=== PATIENT | male | born 1980 | race Caucasian/White ===

== ENCOUNTER 2018-12-14 14:37 | Emergency (ER) | payer SELFPAY ==
[~2018-12-14] VITALS: Ht 170.2 cm; Wt 89.8 kg
[2018-12-14] MEDS ORDERED: LIDOCAINE 1% INJ 20 ML 20 ML VIAL ONE (14:50)
[2018-12-14] MEDS ORDERED: LIDOCAINE 1% INJ 20 ML 20 ML VIAL INJ ONE (15:00)
[2018-12-14] MEDS ORDERED: TETANUS,DIPTH,PERTUSS P/F (BOOSTRIX) 0.5 ML VIAL IM ONE (15:00)
--- NOTE | 2018-12-14 15:10 | NUR ---
Removal of FB wood splinted into toe. Digital block per Dr Haque with 1% Lidocaine, #11 Blade incision with FB removed.
--- NOTE | 2018-12-14 15:15 | NUR ---
Irrigated thru the incisional area with sterile NS with Betasept thru a 20 ga IV intercath with 40 ml thru and thru and add'l cleansing of toes with NS/Betasept. Ortho shoe placed on pt.
--- NOTE | 2018-12-14 15:15 | NUR ---
Pt signed consent for tdap inj.
--- NOTE | 2018-12-14 15:19 | ED Lower Extremity ---
General Chief Complaint: Foreign Body Stated Complaint: RT TOE FOREIGN OBJECT Nursing Triage Note: splinter History of Present Illness Date Seen by Provider: Dec 14, 2018 Time Seen by Provider: 15:14 Initial Comments Patient presenting to the emergency department for evaluation of a foreign body to his right big toe region as he states that her moving furniture yesterday and he thinks Big Piece of wood sticking up from his wood floor and he stepped on it. There is apparent piece of wood sticking up from the top side. He thinks his tetanus may be out of date so it was updated here. Patient denies any wea kness numbness tingling. He is in no obvious distress with normal vital signs. Allergies and Home Medications Allergies Coded Allergies: No Known Drug Allergies (Unverified , 12/14/18) Patient Home Medication List Home Medication List Reviewed: Yes Review of Systems Constitutional: No fever Skin: other (foreign body) Past Hcmnvll-Xvzesl-Sfszmz Hx Patient Social History Alcohol Use: Denies Use Recreational Drug Use: No Smoking Status: Current Everyday Smoker Type Used: Electronic/Vapor 2nd Hand Smoke Exposure: Yes Recent Hopitalizations: No Physical Abuse: No Sexual Abuse: No Mistreated: No Fear: No Seasonal Allergies Seasonal Allergies: No Past Medical History Surgeries: No Respiratory: No Cardiac: No Neurological: No Genitourinary: No Gastrointestinal: No Musculoskeletal: No Endocrine: No HEENT: No Cancer: No Psychosocial: No Integumentary: No Blood Disorders: No Physical Exam Vital Signs Capillary Refill : Height, Weight, BMI Height: '" Weight: lbs. oz. kg; BMI Method: General Appearance: WD/WN, no apparent distress Skin: other (bottom of foot at MTP region with skin puncture. On top of foot can see piece of wood tenting skin.) Procedures/Interventions I&D : Blade Size: 11 I & D Procedure: betadine prep Progress Wound prepped and draped in normal sterile fashion and approximately 3 cc of 1% lidocaine without epinephrine used to anesthetize the puncture wound whole in addition to where the skin is tented. An 11 blade was used to make a small incision where the skin was tented. Forceps and tweezers were then used to open the skin and grab the foreign body. Foreign body was removed in 1 traction motion and appeared to be intact. Piece of wood was a fairly large approximately 2 cm in length. Opening was irrigated copiously. No complications noted. Progress/Results/Core Measures Results/Orders My Orders Orders - AMANDA YANES DO Dipht,Pertuss(Acell),Tet Adult (Boostrix (12/14/18 15:00) Lidocaine 1% Inj 20 Ml (Xylocaine 1% Inj (12/14/18 15:00) Lidocaine 1% Inj 20 Ml (Xylocaine 1% Inj (12/14/18 14:50) Medications Given in ED Current Medications Medications Dose Ordered Sig/Burak Route Start Time Stop Time Status Last Admin Dose Admin Lidocaine HCl 20 ml ONCE ONCE INJ 12/14/18 15:00 12/14/18 15:01 DC 12/14/18 15:00 20 ML Progress Progress Note : Progress Note Foreign body appears to be removed intact however I didn't outreach counselor them that there can always be possibility of retained foreign body into watch for signs of infection and if there is any concerns he will need to return for further evaluation. Patient aware and agreeable with plan and verbalized understanding of need for short term f/u and strict ED return precautions discussed including worsening pain, redness, swelling, drainage or other general concerns. Departure Impression Primary Impression: Foreign body in skin Disposition: 01 HOME, SELF-CARE Condition: Stable Departure-Patient Inst. Referrals: NO,LOCAL PHYSICIAN (PCP/Family) Primary Care Physician Patient Instructions: Foreign Body in Skin AMANDA YANES DO Dec 14, 2018 15:19
[2018-12-14 15:23] VITALS: BP 134/81
== END 2018-12-14 15:23 | disposition home or self-care (01) ==
LOC: ER FS 14:40
DX: S90.451A Superficial foreign body, right great toe, initial encounter (principal); F17.290 Nicotine dependence, other tobacco product, uncomplicated; W45.8XXA Other foreign body or object entering through skin, initial encounter
CPT/HCPCS: 64450; 90715

== ENCOUNTER 2020-11-20 11:54 | Emergency (ER) | payer BC ==
[~2020-11-20] VITALS: Ht 170.1 cm; Wt 104.5 kg
--- NOTE | 2020-11-20 13:06 | ED Upper Extremity ---
General Chief Complaint: Upper Extremity Stated Complaint: RT ARM INJ Nursing Triage Note: Patient presents to the ED with c/o of right elbow soreness, tingling, and numbness in extending down to hand and fingers from elbow. Patient reports that he was working on a car turning a socket wrench and expected there to be resistance; when he turned the wrench there was no resistance and he hyperextended his elbow. Since then he reports the soreness has not improved and he has been experiencing numbness and tingling in down his arm into his hand and fingers. Nursing Sepsis Screen: No Definite Risk Source: patient History of Present Illness Date Seen by Provider: November 20, 2020 Time Seen by Provider: 12:44 Initial Comments 39-year-old male was trying to tighten a lug nut with a wrench. He was expecting to meet resistance and to work with using the wrench. However when he went to tighten the nut, he had no resistance and ended up hyperextending his right arm and elbow. He has had pain since this incident. He feels that it is inflamed and was stretched. He has tingling into his fingers. 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 He states that especially with work he was having increasing pain by the end of the day. In the last day or 2 he was feeling like there was a rubber band around his wrist and forearm causing him to have tingling in his hand and fingers like he had fallen asleep on it. He has tried ibuprofen with some improvement in his symptoms but states it does not last long. Onset: last week Severity: moderate Pain/Injury Location: right elbow Method of Injury: other (Hyperextended right elbow when trying to use a wrench to tighten a nut) Modifying Factors: Worse With Movement Allergies and Home Medications Allergies Coded Allergies: No Known Drug Allergies (Unverified , 12/14/18) Home Medications Prednisone 20 Mg Tab, 40 MG PO DAILY Prescribed by: FARHANA STEWART on 11/20/20 5429 Patient Home Medication List Home Medication List Reviewed: Yes Review of Systems Constitutional: No chills, No fever EENTM: no symptoms reported Respiratory: no symptoms reported Cardiovascular: no symptoms reported Gastrointestinal: no symptoms reported Genitourinary: no symptoms reported Musculoskeletal: see HPI Skin: No change in color Psychiatric/Neurological: Tingling Past Kefbpmd-Jxoiof-Ffmtmx Hx Past Med/Social Hx: Reviewed Nursing Past Med/Soc Hx Patient Social History Alcohol Use: Denies Use Smoking Status: Current Everyday Smoker Type Used: Electronic/Vapor 2nd Hand Smoke Exposure: Yes Recent Infectious Disease Expo: No Recent Hopitalizations: No Seasonal Allergies Seasonal Allergies: No Past Medical History Surgeries: No Respiratory: No Cardiac: No Neurological: No Genitourinary: No Gastrointestinal: No Musculoskeletal: No Endocrine: No HEENT: No Cancer: No Psychosocial: No Integumentary: No Blood Disorders: No Physical Exam Vital Signs Vital Signs - First Documented 11/20/20 12:25 Temp 37.1 Pulse 84 Resp 16 B/P (MAP) 140/105 (117) Pulse Ox 98 O2 Delivery Room Air Capillary Refill : Less Than 3 Seconds Height, Weight, BMI Height: 5'7.00" Weight: 198lbs. 0oz. 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 Ice to help with pain and swelling Progress Note #2: Progress Note X-rays did not demonstrate any acute bony injury. There did not appear to be a joint effusion. Treat with steroid and see if that helps from an inflammation standpoint better than the ibuprofen. Ice for pain and swelling. Encouraged to follow-up with clinic especially if he was not seeing improvement Diagnostic Imaging Diagonstic Imaging: Xray Plain Films/CT/US/NM/MRI: elbow Comments [facility] [place], [place] NAME: MAHNAZ ULLOA [facility] REC#: [id number] PT STATUS: REG ER : 1980 PHYSICIAN: FARHANA STEWART MD ADMIT DATE: 11/20/20/ER FS Signed Date of Exam:11/20/20 ELBOW 3 VIEW RIGHT INDICATION: Right elbow pain after hyperextension one week ago. FINDINGS: 3 views of the right elbow demonstrates normal ossification. No fracture, dislocation or joint effusion is seen. IMPRESSION: Negative right elbow. Dictated by: Dictated on workstation # [id number] Dict: 11/20/20 1318 Trans: 11/20/20 1336 [id number] Interpreted by: MARIELY EDOUARD MD Electronically signed by: MARIELY EDOUARD MD 11/20/20 1336 Reviewed: Reviewed by Me Departure Impression Primary Impression: Hyperextension injury of right elbow Qualified Codes: S59.801A - Other specified injuries of right elbow, initial encounter Additional Impression: Inflammation of peripheral nerve of right upper extremity Disposition: HOME, SELF-CARE Condition: Stable Departure-Patient Inst. Decision time for Depature: 13:35 Referrals: ROBIN OLEA MD (PCP/Family) Primary Care Physician Patient Instructions: Elbow Sprain ED Add. Discharge Instructions: Use ice 15-20 minutes every few hours as needed for pain and inflammation Take the steroid to help with inflammation and pain in place of the Ibuprofen. You could take acetaminophen as well if you need something more for pain. If not improving with this treatment then check with Dr. Olea as you may need to see Orthopedics like Dr. Vasquez or his Nurse Practitioner Igor Baker. If you want to call them directly to get seen you would call [phone] All discharge instructions reviewed with patient and/or family. Voiced understanding. Scripts Prednisone (Prednisone) 20 Mg Tab 40 MG PO DAILY for pain/nerve inflammation for 7 Days, #14 TAB 0 Refills Prov: ENYART,FARHANA E MD 11/20/20 FARHANA STEWART MD November 20, 2020 13:06
--- NOTE | 2020-11-20 13:21 | Diagnostic Imaging Report ---
INDICATION: Right elbow pain after hyperextension one week ago. FINDINGS: 3 views of the right elbow demonstrates normal ossification. No fracture, dislocation or joint effusion is seen. IMPRESSION: Negative right elbow. Dictated by: Dictated on workstation # [id number]
[2020-11-20] MEDS ORDERED: PRD20T PO (13:39)
[2020-11-20 13:49] VITALS: BP 145/87
== END 2020-11-20 13:47 | disposition home or self-care (01) ==
LOC: EDUNIT# 11:54 → ER FS 11:56
DX: S59.801A Other specified injuries of right elbow, initial encounter (principal); M79.2 Neuralgia and neuritis, unspecified; F17.290 Nicotine dependence, other tobacco product, uncomplicated; X50.9XXA Other and unspecified overexertion or strenuous movements or postures, initial encounter
CPT/HCPCS: 73080

== ENCOUNTER 2021-04-08 15:44 | Emergency (ER) | payer SELFPAY ==
[~2021-04-08] VITALS: Ht 170.1 cm; Wt 104.5 kg
[~2021-04-08 15:44] MED LIST: PRD20T PO
--- NOTE | 2021-04-08 15:51 | ED Chest Pain ---
General Stated Complaint: CHEST PAIN History of Present Illness Date Seen by Provider: Apr 08, 2021 Time Seen by Provider: 15:47 Initial Comments 40-year-old male presents with a brief 20-30 seconds of chest pain. Patient was at work when it started. 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 Patient also reports he can had a dull headache for about 2 weeks along with some feeling of shortness of breath for about 2 weeks. No reports of fevers chills nausea or vomiting. Patient is vaccinated with his last vaccination back in . Patient reports that his blood pressure has been running high. He went to [employer] and checked it noticed it was high and has been checking it frequently and it seems to be running higher than normal. Patient has no history of high blood pressure. No other systemic complaints Allergies and Home Medications Allergies Coded Allergies: No Known Drug Allergies (Unverified , 12/14/18) Patient Home Medication List Home Medication List Reviewed: Yes Prednisone (Prednisone) 20 Mg Tab, 40 MG PO DAILY Prescribed by: FARHANA STEWART on 11/20/20 1339 Review of Systems Review of Systems Constitutional: No chills, No fever Respiratory: Denies Cough; Shortness of Air; Denies Wheezing Cardiovascular: Chest Pain; Denies Irregular Heart Rate, Denies Lightheadedness, Denies Palpitations Gastrointestinal: Denies Abdominal Pain, Denies Nausea, Denies Vomiting Musculoskeletal: no symptoms reported Psychiatric/Neurological: Headache Past Bhzanbu-Txqdsc-Iruxfd Hx Seasonal Allergies Seasonal Allergies: No Past Medical History Surgeries: No Respiratory: No Cardiac: No Neurological: No Genitourinary: No Gastrointestinal: No Musculoskeletal: No Endocrine: No HEENT: No Cancer: No Psychosocial: No Integumentary: No Blood Disorders: No Physical Exam Vital Signs Vital Signs - First Documented 04/08/21 15:47 Temp 35.9 Pulse 79 Resp 14 B/P (MAP) 167/100 (122) Pulse Ox 100 O2 Delivery Room Air Capillary Refill : Height, Weight, BMI Height: 5'7.00" Weight: 198lbs. 0oz. 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 Skin: Normal Color, Warm/Dry Progress/Results/Core Measures Results/Orders Lab Results Laboratory Tests Test 04/08/21 15:55 Range/Units White Blood Count 8.5 4.3-11.0 10^3/uL Red Blood Count 5.08 4.30-5.52 10^6/uL Hemoglobin 15.3 13.3-17.7 g/dL Hematocrit 43 40-54 % Mean Corpuscular Volume 85 80-99 fL Mean Corpuscular Hemoglobin 30 25-34 pg Mean Corpuscular Hemoglobin Concent 35 32-36 g/dL Red Cell Distribution Width 12.4 10.0-14.5 % Platelet Count 277 130-400 10^3/uL Mean Platelet Volume 9.1 9.0-12.2 fL Immature Granulocyte % (Auto) 0 % Neutrophils (%) (Auto) 60 42-75 % Lymphocytes (%) (Auto) 29 12-44 % Monocytes (%) (Auto) 8 0-12 % Eosinophils (%) (Auto) 1 0-10 % Basophils (%) (Auto) 1 0-10 % Neutrophils # (Auto) 5.1 1.8-7.8 X 10^3 Lymphocytes # (Auto) 2.5 1.0-4.0 X 10^3 Monocytes # (Auto) 0.7 0.0-1.0 X 10^3 Eosinophils # (Auto) 0.1 0.0-0.3 10^3/uL Basophils # (Auto) 0.0 0.0-0.1 10^3/uL Immature Granulocyte # (Auto) 0.0 0.0-0.1 10^3/uL Prothrombin Time 12.6 12.2-14.7 SEC INR Comment 0.9 0.8-1.4 Activated Partial Thromboplast Time 26 24-35 SEC Sodium Level 139 135-145 MMOL/L Potassium Level 4.0 3.6-5.0 MMOL/L Chloride Level 100 98-107 MMOL/L Carbon Dioxide Level 26 21-32 MMOL/L Anion Gap 13 5-14 MMOL/L Blood Urea Nitrogen 21 H 7-18 MG/DL Creatinine 1.17 0.60-1.30 MG/DL Estimat Glomerular Filtration Rate 70 BUN/Creatinine Ratio 18 Glucose Level 90 70-105 MG/DL Calcium Level 9.6 8.5-10.1 MG/DL Corrected Calcium 8.5-10.1 MG/DL Magnesium Level 2.0 1.6-2.4 MG/DL Total Bilirubin 0.4 0.1-1.0 MG/DL Aspartate Amino Transf (AST/SGOT) 25 5-34 U/L Alanine Aminotransferase (ALT/SGPT) 35 0-55 U/L Alkaline Phosphatase 67 40-136 U/L Troponin I < 0.30 <0.30 NG/ML C-Reactive Protein < 0.30 <0.50 MG/DL Total Protein 7.6 6.4-8.2 GM/DL Albumin 4.8 H 3.2-4.5 GM/DL Lipase 38 8-78 U/L My Orders Orders - CASTILLO,DIPTI L DO Cbc With Automated Diff (04/08/21 15:52) Magnesium (04/08/21 15:52) Chest 1 View Ap/Pa Only (04/08/21 15:52) Ekg Tracing (04/08/21 15:52) Comprehensive Metabolic Panel (04/08/21 15:52) Myoglobin Serum (04/08/21 15:52) Protime With Inr (04/08/21 15:52) Partial Thromboplastin Time (04/08/21 15:52) Monitor-Rhythm Ecg Trace Only (04/08/21 15:52) Aspirin Chewable Tablet (Baby Aspirin Ch (04/08/21 16:00) Ed Iv/Invasive Line Start (04/08/21 15:52) Lipase (04/08/21 15:52) Troponin I Fs (04/08/21 15:52) Probnp Fs (04/08/21 15:52) Crp Fs (04/08/21 15:52) Medications Given in ED Current Medications Medications Dose Ordered Sig/Burak Route Start Time Stop Time Status Last Admin Dose Admin Aspirin 324 mg ONCE ONCE PO 04/08/21 16:00 04/08/21 16:01 DC 04/08/21 16:00 324 MG Vital Signs/I&O 04/08/21 15:47 Temp 35.9 Pulse 79 Resp 14 B/P (MAP) 167/100 (122) Pulse Ox 100 O2 Delivery Room Air Progress Progress Note : Progress Note She went negative chest x-ray, EKG, labs. Patient's headache and feeling short of breath has been going on for least week and 2:30 weeks. I discussed the need for him to follow-up with his primary care provider for further outpatient evaluation as there is a large number of causes for headaches. Patient's last blood pressure was 149/88 so this would not have any indication for outpatient treatment from the ER. Patient's chest pain was brief and nonspecific very un likely cardiac. Patient stable and discharged Initial ECG Impression Date: Apr 08, 2021 Initial ECG Impression Time: 15:44 Initial ECG Rate: 76 Initial ECG Rhythm: Normal Sinus Initial ECG Intervals: Normal Initial ECG Impression: Normal Comment normal ekg Departure Impression Primary Impression: Chest pain Qualified Codes: R07.89 - Other chest pain Additional Impression: Headache, unspecified Qualified Codes: R51.9 - Headache, unspecified Disposition: 01 HOME, SELF-CARE Condition: Stable Departure-Patient Inst. Referrals: SELFROBIN MD (PCP/Family) Primary Care Physician Patient Instructions: Headache, Adult ED, How to Keep Track of Your Headaches, Home Headache Remedies, Chest Pain That Is Not Caused by the Heart (DC) Add. Discharge Instructions: Follow-up with your primary care provider for further evaluation and outpatient management DIPTI CASTILLO DO Apr 08, 2021 15:51
[2021-04-08] MEDS ORDERED: ASPIRIN 81 MG CHEW (CHILDREN'S ASA) PO ONE (16:00)
[2021-04-08 16:02] LABS: BASOPHILS % (AUTO) 1 % (0-10); EOSINOPHILS # (AUTO) 0.1 10^3/uL (0.0-0.3); EOSINOPHILS % (AUTO) 1 % (0-10); HEMATOCRIT 43 % (40-54); HEMOGLOBIN 15.3 g/dL (13.3-17.7); LYMPHOCYTES # (AUTO) 2.5 X 10^3 (1.0-4.0); LYMPHOCYTES % (AUTO) 29 % (12-44); MEAN CORPUSCULAR HEMOGLOBIN 30 pg (25-34); MEAN CORPUSCULAR HGB CONC 35 g/dL (32-36); MEAN CORPUSCULAR VOLUME 85 fL (80-99); MEAN PLATELET VOLUME 9.1 fL (9.0-12.2); MONOCYTES # (AUTO) 0.7 X 10^3 (0.0-1.0); MONOCYTES % (AUTO) 8 % (0-12); NEUTROPHILS # (AUTO) 5.1 X 10^3 (1.8-7.8); NEUTROPHILS % (AUTO) 60 % (42-75); PLATELET COUNT 277 10^3/uL (130-400); WHITE BLOOD COUNT 8.5 10^3/uL (4.3-11.0)
--- NOTE | 2021-04-08 16:06 | Diagnostic Imaging Report ---
EXAM: Chest 1 view AP/PA only. INDICATION: Chest pain. COMPARISON: None. FINDINGS: Normal heart size and pulmonary vascularity. No dense consolidation, pleural effusion or pneumothorax. No acute osseous findings. IMPRESSION: No acute cardiopulmonary finding. Dictated by: Dictated on workstation # [id number]
[2021-04-08 16:15] LABS: INR 0.9 (0.8-1.4); PROTHROMBIN TIME PATIENT 12.6 SEC (12.2-14.7)
[2021-04-08 16:28] LABS: ALANINE AMINOTRANSFERASE 35 U/L (0-55); ALBUMIN 4.8 GM/DL (3.2-4.5); ALKALINE PHOSPHATASE 67 U/L (40-136); BILIRUBIN,TOTAL 0.4 MG/DL (0.1-1.0); BUN/CREATININE RATIO 18; CALCIUM 9.6 MG/DL (8.5-10.1); CARBON DIOXIDE 26 MMOL/L (21-32); CHLORIDE 100 MMOL/L (98-107); CREATININE SERUM 1.17 MG/DL (0.60-1.30); GFR ESTIMATED 70; GLUCOSE 90 MG/DL (70-105); LIPASE 38 U/L (8-78); SODIUM 139 MMOL/L (135-145); TOTAL PROTEIN 7.6 GM/DL (6.4-8.2)
[2021-04-08 17:00] VITALS: BP 149/99
== END 2021-04-08 16:49 | disposition home or self-care (01) ==
LOC: EDUNIT# 15:44 → ER FS 15:46
DX: R07.9 Chest pain, unspecified (principal); R51.9 Headache, unspecified; Z79.52 Long term (current) use of systemic steroids
CPT/HCPCS: 36415; 71045; 80053; 83690; 83735; 83874; 83880; 84484; 85025; 85610; 85730; 86141; 93005; 93041

== ENCOUNTER 2021-09-22 12:13 | Emergency (ER) | payer OTHER ==
[~2021-09-22] VITALS: Ht 170 cm; Wt 100.0 kg
[2021-09-22] MEDS ORDERED: morphine INJ 10 MG/ML 1ML (SYR OR VIAL) IVP STA (12:29)
[2021-09-22] MEDS ORDERED: KETOROLAC 30 MG/ML VIAL IM ONE (12:30)
--- NOTE | 2021-09-22 12:34 | ED Upper Extremity ---
General Chief Complaint: Laceration Stated Complaint: WC RT FINGER LAC Source: patient Exam Limitations: no limitations History of Present Illness Date Seen by Provider: Sep 22, 2021 Time Seen by Provider: 12:16 Initial Comments 40yoM that is RHD with no significant PMH coming in after cutting his right middle finger and ring finger. 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 Tetanus updated 3 years ago. He came immediately to the ER. He is having moderate to severe constant throbbing pain in his fingers which nothing seems to make better or worse. Is otherwise denying any other acute complaints. Allergies and Home Medications Allergies Coded Allergies: No Known Drug Allergies (Unverified , 12/14/18) Patient Home Medication List Home Medication List Reviewed: Yes Cephalexin (Cephalexin) 500 Mg Tablet, 500 MG PO QID Prescribed by: HENRIK CERVANTES on 09/22/21 1359 Hydrocodone Bit/Acetaminophen (HYDROcodone/APAP 5 MG/325 MG TAB) 1 Tab Tab, 1 TAB PO Q6H PRN for PAIN-SEVERE (8-10) Prescribed by: HENRIK CERVANTES on 09/22/21 1359 Prednisone (Prednisone) 20 Mg Tab, 40 MG PO DAILY Prescribed by: FARHANA STEWART on 11/20/20 1339 Review of Systems Constitutional: No chills, No fever EENTM: No blurred vision Respiratory: No cough Cardiovascular: No chest pain Gastrointestinal: No abdominal pain Genitourinary: no symptoms reported Musculoskeletal: joint pain Skin: other (Finger lacerations) Psychiatric/Neurological: No Symptoms Reported All Other Systems Reviewed Negative Unless Noted: Yes Past Xgzudri-Fwkncw-Dfnddh Hx Patient Social History Tobacco Use?: No Immunizations Up To Date First/Initial COVID19 Vaccinat: January 2021 Second COVID19 Vaccination Yaya: January 2021 Seasonal Allergies Seasonal Allergies: No Past Medical History Surgeries: No Respiratory: No Cardiac: No Neurological: No Genitourinary: No Gastrointestinal: No Musculoskeletal: No Endocrine: No HEENT: No Cancer: No Psychosocial: No Integumentary: No Blood Disorders: No Physical Exam Vital Signs Vital Signs - First Documented 09/22/21 12:50 Temp 35.6 Pulse 56 Resp 16 B/P (MAP) 132/108 (116) Pulse Ox 96 O2 Delivery Room Air Capillary Refill : Height, Weight, BMI Height: 5'7.00" Weight: 198lbs. 0oz. [id number]; 36.00 BMI Method:Stated General Appearance: WD/WN, mild distress HEENT: PERRL/EOMI, normal ENT inspection, pharynx normal Neck: non-tender, full range of motion, supple, normal inspection Cardiovascular: regular rate, rhythm, no edema, no murmur Respiratory: chest non-tender, lungs clear, normal breath sounds, no respiratory distress, no accessory muscle use Gastrointestinal: normal bowel sounds, non tender, soft; No distended, No guarding, No rebound Back: normal inspection, no CVA tenderness, no vertebral tenderness Shoulder: normal inspection, non-tender, no evidence of injury Elbow/Forearm: normal inspection Wrist: Yes normal inspection Hand: Right, laceration (1-1/2 cm laceration to the right middle finger on the radial side going into the nail that is hemostatic, small amount of skin removed from the radial side of the right ring finger with no real laceration) Neurologic/Tendon: normal sensation, normal motor functions, normal tendon functions Neurologic/Psychiatric: no motor/sensory deficits, alert, normal mood/affect Skin: normal color, warm/dry Lymphatic: no adenopathy Procedures/Interventions Wound Location: Upper Extremities Other Wound Location right middle finger Wound Length (cm): 1.5 Wound's Depth, Shape: into muscle, bone Wound Explored: bone fragment removed Irrigated w/ Saline (ccs): 500 Anesthesia: 1% Lidocaine (digital block performed ) Volume Anesthetic (ccs): 4 Wound Debrided: minimal Suture: Chromic Suture Size: 6-0 Number of Sutures: 8 Sterile Dressing Applied?: Yes Progress tolerated procedure well, one suture did have to go through nailbed and fingernail to keep it together Progress/Results/Core Measures Results/Orders My Orders Orders - HENRIK CERVANTES MD Morphine Injection (Morphine Injection (09/22/21 12:29) Ketorolac Injection (Toradol Injection) (09/22/21 12:30) Hand 3 View Right (09/22/21 12:29) Cephalexin Capsule (Keflex Capsule) (09/22/21 14:01) Medications Given in ED Current Medications Medications Dose Ordered Sig/Burak Route Start Time Stop Time Status Last Admin Dose Admin Ketorolac Tromethamine 15 mg ONCE ONCE IM 4/2/22 12:30 09/22/21 12:31 DC 09/22/21 12:34 15 MG Vital Signs/I&O 09/22/21 12:50 Temp 35.6 Pulse 56 Resp 16 B/P (MAP) 132/108 (116) Pulse Ox 96 O2 Delivery Room Air Progress Progress Note : Progress Note Presented to the ER after he cut his finger with a saw at work. Tetanus up-to-date. Vital stable. Hemostatic on exam. X-ray obtained showing a fracture fragment through the distal tuft of the right middle finger. Digital block was performed, it was extensively cleaned, I did remove the bone fragment. It was closed with chromic gut and dressed afterwards. Given antibiotics given the extent of the wound. He was then discharged home in stable condition with strict return precautions Diagnostic Imaging Diagonstic Imaging: Xray (hand) Comments [facility]. [place], [place] NAME: MAHNAZ ULLOA [facility] REC#: [id number] PT STATUS: REG ER : 1980 PHYSICIAN: HENRIK CERVANTES MD ADMIT DATE: 09/22/21/ER FS Draft Date of Exam:09/22/21 HAND 3 VIEW RIGHT INDICATION: Right hand pain and swelling after laceration from saw. COMPARISON: None. DISCUSSION: Three views of the right hand were obtained. Soft tissue wound noted involving the distal tip of the 3rd right finger. There is a displaced fragment involving the distal tuft of the 3rd right finger which is displaced into the volar soft tissues. No metallic foreign body. No dislocation. IMPRESSION: Displaced fracture fragment arising from the distal tuft of the distal right 3rd finger. Dictated on workstation # [id number] Dict: 09/22/21 1248 Trans: 09/22/21 1259 [id number] Interpreted by: AMANDA LOVE MD Electronically signed by: Departure Impression Primary Impression: Finger laceration Qualified Codes: S61.312A - Laceration without foreign body of right middle finger with damage to nail, initial encounter Disposition: 01 HOME, SELF-CARE Condition: Stable Departure-Patient Inst. Decision time for Depature: 14:05 Referrals: SELFROBIN MD (PCP) Primary Care Physician Patient Instructions: Laceration Repair With Stitches ED Add. Discharge Instructions: The stitches are absorbable. Try not to get the finger wet for the next week, after that time it is okay to submerge in water. Keep it covered so that it does not get dirty. He will take antibiotics for 1 week. Take ibuprofen 600 mg every 6 hours as needed for pain. If you have pain on top of that you can take the hydrocodone. If you have any redness spitting up your arm, pus coming out, or any fever I want you to be checked by another doctor. Scripts Hydrocodone Bit/Acetaminophen (HYDROcodone/APAP 5 MG/325 MG TAB) 1 Tab Tab 1 TAB PO Q6H PRN for PAIN-SEVERE (8-10) for 3 Days, #12 TAB 0 Refills Prov: HENRIK CERVANTES MD 09/22/21 Cephalexin (Cephalexin) 500 Mg Tablet 500 MG PO QID for 7 Days, #28 TAB Prov: HENRIK CERVANTES MD 09/22/21 Work/School Note: Work Release Form Date Seen in the Emergency Department: Sep 22, 2021 Return to Work: Sep 24, 2021 Restrictions: No Restrictions Other Restrictions Listed Below: Keep wound completely covered for 1 week so it doesn't get wet HENRIK CERVANTES MD Sep 22, 2021 12:34
[2021-09-22 12:50] VITALS: BP 132/108
--- NOTE | 2021-09-22 13:00 | Diagnostic Imaging Report ---
INDICATION: Right hand pain and swelling after laceration from saw. COMPARISON: None. DISCUSSION: Three views of the right hand were obtained. Soft tissue wound noted involving the distal tip of the 3rd right finger. There is a displaced fragment involving the distal tuft of the 3rd right finger which is displaced into the volar soft tissues. No metallic foreign body. No dislocation. IMPRESSION: Displaced fracture fragment arising from the distal tuft of the distal right 3rd finger. Dictated by: Dictated on workstation # [id number]
[2021-09-22] MEDS ORDERED: CEPH500T PO ×2 (13:59→15:29)
[2021-09-22] MEDS ORDERED: ACHD5005 PO ×2 (13:59→15:29)
[2021-09-22] MEDS ORDERED: CEPHALEXIN 250 MG (KEFLEX) CAP PO STA (14:01)
== END 2021-09-22 14:30 | disposition home or self-care (01) ==
LOC: EDUNIT# 12:13 → ER FS 12:15
DX: S61.212A Laceration without foreign body of right middle finger without damage to nail, initial encounter (principal); W26.8XXA Contact with other sharp object(s), not elsewhere classified, initial encounter
CPT/HCPCS: 73130; 99282

== ENCOUNTER 2023-04-07 14:36 | Emergency (ER) | payer SELFPAY ==
[~2023-04-07] VITALS: Ht 170.2 cm; Wt 101.3 kg
[~2023-04-07 14:36] MED LIST changes: +ACHD5005 PO; +CEPH500T PO
[2023-04-07 14:50] VITALS: BP 126/89
[2023-04-07] MEDS ORDERED: cefTRIAXone 1,000 MG VIAL IV/IM IM STA (15:01)
[2023-04-07] MEDS ORDERED: SULF1TAB38 PO (15:04)
--- NOTE | 2023-04-07 15:06 | ED Integumentary General ---
General Chief Complaint: Bite-Animal/Human/Insect Stated Complaint: INSECT BITE RT LEG Source: patient History of Present Illness Date Seen by Provider: Apr 07, 2023 Time Seen by Provider: 14:41 Initial Comments 42-year-old male presenting with complaints of redness and stinging to the back of his right calf. He thought that something may be bit him on Friday night. Today when he was at work he was having burning pain in his was hurting as it rubbed against his jeans. After he got off work he noticed that the area was red and felt warm to the touch. He cleaned it with alcohol and felt that he was getting some drainage from it. He denied having any fever or chills. He was concerned that there might be a spider bite that it caused this. He denies known history of MRSA. There is no redness streaking up his leg. He does have an area of redness with tenderness to palpation but there is no fluctuance or induration. Timing/Duration: getting worse Severity: moderate Location: extremities (Right posterior calf) Possible Cause: insect bite (Small bite from Friday) Modifying Factors: worse with scratching Associated Symptoms: change in skin texture, edema; No fever, No hives, No jaundice, No malaise, No nasal congestion, No numbness, No pallor, No paresthesia, No petechiae, No sore throat, No tingling Allergies and Home Medications Allergies Coded Allergies: No Known Drug Allergies (Unverified , 12/14/18) Patient Home Medication List Home Medication List Reviewed: Yes Cephalexin (Cephalexin) 500 Mg Tablet, 500 MG PO QID Prescribed by: HENRIK CERVANTES on 09/22/21 1529 Hydrocodone Bit/Acetaminophen (HYDROcodone/APAP 5 MG/325 MG TAB) 1 Tab Tab, 1 TAB PO Q6H PRN for PAIN-SEVERE (8-10) Prescribed by: HENRIK CERVANTES on 09/22/21 1530 Prednisone (Prednisone) 20 Mg Tab, 40 MG PO DAILY Prescribed by: FARHANA STEWART on 11/20/20 1339 Sulfamethoxazole/Trimethoprim (Bactrim Ds Tablet) 1 Each Tablet, 1 EACH PO BID Prescribed by: FARHANA STEWART on 04/07/23 1504 Review of Systems Review of Systems Constitutional: No chills, No dizziness, No fever EENTM: no symptoms reported Respiratory: no symptoms reported Cardiovascular: no symptoms reported Gastrointestinal: no symptoms reported Genitourinary: no symptoms reported Musculoskeletal: see HPI Skin: see HPI Psychiatric/Neurological: No Symptoms Reported Past Dwdjivi-Bbfkan-Zvosin Hx Immunizations Up To Date First/Initial COVID19 Vaccinat: January 2021 Second COVID19 Vaccination Yaya: January 2021 Seasonal Allergies Seasonal Allergies: No Past Medical History Surgeries: No Respiratory: No Cardiac: No Neurological: No Genitourinary: No Gastrointestinal: No Musculoskeletal: No Endocrine: No HEENT: No Cancer: No Psychosocial: No Integumentary: No Blood Disorders: No Physical Exam Vital Signs Vital Signs - First Documented 04/07/23 14:50 Temp 36.8 Pulse 83 Resp 16 B/P (MAP) 126/89 (101) O2 Delivery Room Air Capillary Refill : General Appearance: WD/WN, no apparent distress Cardiovascular: normal peripheral pulses Extremities: normal range of motion, normal capillary refill, inflammation (Area of erythema and tenderness to palpation on the posterior superior calf on the right side. There is no induration or fluctuance or drainage noted.) Skin: warm/dry Skin Problem Location: lower extremities (Right posterior superior calf) Skin Problem Character: erythema, swelling, tenderness, warm Procedures/Interventions Suture Size: 6-0 Progress/Results/Core Measures Results/Orders My Orders Orders - FARHANA STEWART MD Ceftriaxone Iv/Im (Ceftriaxone Iv/Im) (04/07/23 15:01) Lidocaine 1% Inj 20 Ml (Xylocaine 1% Inj (04/07/23 15:15) Lidocaine 1% Inj 10 Ml (Xylocaine 1% Inj (04/07/23 15:07) Medications Given in ED Current Medications Medications Dose Ordered Sig/Burak Route Start Time Stop Time Status Last Admin Dose Admin Lidocaine HCl 10 ml STK-MED ONCE .ROUTE 04/07/23 15:07 04/07/23 15:11 DC 04/07/23 15:13 2.1 ML Vital Signs/I&O 04/07/23 14:50 Temp 36.8 Pulse 83 Resp 16 B/P (MAP) 126/89 (101) O2 Delivery Room Air Progress Progress Note : Progress Note With patient not having any induration, fluctuance, drainage there is nothing to culture. Will start him on antibiotics for cellulitis and possible insect bite. Administer Rocephin 1 g IM and followed up with Bactrim DS 1 p.o. twice daily x10 days. Counseled on follow-up and return precautions. Advised if it is worsening or not improving by the end of the week that he may need IV antibiotics or be admitted if it is worsening. May take vckf-pir-uylmtua ibuprofen and/or naproxen to help with inflammation and tenderness. Try to keep the area covered so it does not rub on fluids. May apply antibiotic ointment 2-3 times a day as needed to help with topical healing. Departure Impression Primary Impression: Cellulitis of right lower extremity without foot Additional Impression: Insect bite (nonvenomous), right lower leg, initial encounter Disposition: HOME, SELF-CARE Condition: Stable Departure-Patient Inst. Decision time for Depature: 15:03 Referrals: ROBIN GIBSON MD (PCP/Family) Primary Care Physician Patient Instructions: Insect Bites and Stings ED, Wound Care ED, Cellulitis (Skin Infection), Adult ED Add. Discharge Instructions: Keep area clean with soap and water. May apply topical antibiotic ointment to help with infection. Take the full course of oral antibiotics to treat for Cellulitis. If not improving by or if worsening by end of the week then you will need to be seen again as you may need a different antibiotic or be admitted to a hospital for IV antibiotics if it is worsening despite the antibiotics. Keep area covered so it is not rubbing on your clothes. May take Ibuprofen or naproxen to help wiht pain and inflammation All discharge instructions reviewed with patient and/or family. Voiced understanding. Scripts Sulfamethoxazole/Trimethoprim (Bactrim Ds Tablet) 1 Each Tablet 1 EACH PO BID for Cellulitis for 10 Days, #20 TAB 0 Refills Prov: FARHANA STEWART MD 04/07/23 FARHANA STEWART MD Apr 07, 2023 15:06
[2023-04-07] MEDS ORDERED: LIDOCAINE 1% INJ 10 ML VIAL ONE (15:07)
[2023-04-07] MEDS ORDERED: LIDOCAINE 1% INJ 20 ML VIAL INJ ONE (15:15)
== END 2023-04-07 15:15 | disposition home or self-care (01) ==
LOC: EDUNIT# 14:36 → ER FS 14:38
DX: S80.861A Insect bite (nonvenomous), right lower leg, initial encounter (principal); L03.115 Cellulitis of right lower limb; W57.XXXA Bitten or stung by nonvenomous insect and other nonvenomous arthropods, initial encounter
CPT/HCPCS: 99283